=== PATIENT | female | born 1965 | race Caucasian/White ===

== ENCOUNTER 2016-06-22 | Emergency (ER) | payer OTHER ==
[~2016-06-22] MED LIST: BACTRIM DS TABL1 TAB PO
[2016-06-22] MEDS ORDERED: PERCOCET 5-3251 EACH PO (15:52)
== END 2016-06-22 17:45 ==
DX: S89.91XA Unspecified injury of right lower leg, initial encounter (principal); M25.461 Effusion, right knee; Z88.5 Allergy status to narcotic agent; F17.200 Nicotine dependence, unspecified, uncomplicated; X50.1XXA Overexertion from prolonged static or awkward postures, initial encounter; Y93.89 Activity, other specified; Y99.8 Other external cause status